=== PATIENT | female | born 1995 | race Caucasian/White ===

== ENCOUNTER 2022-03-02 14:17 | Emergency (ER) | payer BC ==
[~2022-03-02] VITALS: Ht 170.2 cm; Wt 63.5 kg
[2022-03-02 14:24] VITALS: BP 132/59
== END 2022-03-02 16:20 | disposition left against medical advice (07) ==
LOC: EMS 14:22
DX: Z53.21 Procedure and treatment not carried out due to patient leaving prior to being seen by health care provider (principal)